=== PATIENT | male | born 1935 | race Caucasian/White ===

== ENCOUNTER 2016-10-06 12:45 | Emergency (ER) | payer MEDICARE, OTHER ==
[~2016-10-06] VITALS: Ht 177.8 cm; Wt 79.4 kg
[~2016-10-06 12:45] MED LIST: CIPRO500 MG PO; FLAGYL500 MG PO; FOLIC ACID0.8 M1 PO; K-PHOS500 MG PO; LIPITOR20 MG PO; LIPITOR40 MG PO; LOW DOSE ASPIRI81 MG PO; NORCO 5-325 TA1 EACH PO; PHARMASSURE FO0.4 MG PO; SENNO8.6 MG PO; SYNTHROID0.137 MG PO; VITAMIN D400 I1 PO
[2016-10-06 12:59] LABS: BASO % 0.2 % (0.0-1.0); EOS # 0.1 10*3/uL (0.0-0.4); EOS % 0.9 % (1.0-4.0); HEMATOCRIT 39.4 % (42.0-52.0); HEMOGLOBIN 13.2 g/dl (14.0-18.0); LYMPH # 1.7 10*3/uL (1.3-4.4); LYMPH % 20.2 % (27.0-41.0); MEAN CELL VOLUME 94.9 fl (80.0-94.0); MEAN CORPUSCULAR HGB 31.8 pg (27.0-31.0); MEAN CORPUSCULAR HGB CONC 33.5 g/dl (33.0-37.0); MEAN PLATELET VOLUME 11.5 fl (9.6-12.3); MONO # 0.8 10*3/uL (0.1-1.0); MONO % 9.8 % (3.0-9.0); NEUT # 5.6 10*3/uL (2.3-7.9); NEUT % 68.4 % (47.0-73.0); PLATELET COUNT AUTOMATED 250 10*3/uL (130-400); RED BLOOD COUNT 4.15 10*6/uL (4.50-5.90); RED CELL DISTRI WIDTH 13.1 % (0-14.5); WHITE BLOOD COUNT 8.2 10*3/uL (4.8-10.8)
[2016-10-06 13:06] VITALS: BP 101/57
[2016-10-06 13:15] LABS: ALBUMIN 4.1 gm/dl (3.1-4.5); ALKALINE PHOSPHATASE 82 U/L (45-117); BILIRUBIN, TOTAL 0.6 mg/dl (0.2-1.0); BUN 16 mg/dl (7-24); CARBON DIOXIDE 21 mmol/L (21-32); CHLORIDE 107 mmol/L (98-107); CKMB 2.4 ng/ml (0.5-3.6); CPK 137 U/L (39-308); EST GLOM FILT AFRICAN AMERICAN 58 ml/min; GLUCOSE 142 mg/dL (65-99); MAGNESIUM 1.9 mg/dL (1.5-2.1); POTASSIUM 4.1 mmol/L (3.5-5.1); SGOT/AST 31 IU/L (3-35); SGPT/ALT 27 U/L (12-78); SODIUM 140 mmol/L (136-145); TOTAL PROTEIN 7.5 gm/dL (6.4-8.2); TROPONIN I 0.023 ng/ml (<0.045)
[2016-10-06 13:29] LABS: C-REACTIVE PROTEIN < 0.29 MG/DL (0-0.3)
[2016-10-06 14:57] LABS: LA>2 REFLEX 2 HR DRAW NOW
== END 2016-10-06 14:26 | disposition short-term general hospital (02) ==
LOC: ED 12:45
PROVIDERS: Emergency Medicine
DX: I21.3 ST elevation (STEMI) myocardial infarction of unspecified site (principal); I25.10 Atherosclerotic heart disease of native coronary artery without angina pectoris; E78.00 Pure hypercholesterolemia, unspecified; E03.9 Hypothyroidism, unspecified; D53.9 Nutritional anemia, unspecified; Z87.891 Personal history of nicotine dependence; Z96.643 Presence of artificial hip joint, bilateral; Z90.49 Acquired absence of other specified parts of digestive tract; Z98.890 Other specified postprocedural states; Z79.899 Other long term (current) drug therapy; Z88.1 Allergy status to other antibiotic agents; Z79.82 Long term (current) use of aspirin; Z95.2 Presence of prosthetic heart valve

== ENCOUNTER 2016-12-20 13:51 | Inpatient (IN) | payer MEDICARE, OTHER ==
[~2016-12-20] VITALS: Ht 172.7 cm; Wt 73.9 kg
[2016-12-20 13:58] VITALS: BP 141/60
[2016-12-20] MEDS ORDERED: LISINOPRIL2.5 MG PO (14:06)
[2016-12-20] MEDS ORDERED: NITROGLYCERIN0.4 MG SL (14:06)
[2016-12-20] MEDS ORDERED: EFFIENT10 M1 PO (14:06)
[2016-12-20] MEDS ORDERED: LEVOXYL0.137 MG PO (14:06)
[2016-12-20] MEDS ORDERED: ATORVASTATIN CA40 M1 PO (14:07)
[2016-12-20] MEDS ORDERED: NATURE'S BLEND F1 MG PO (14:07)
[2016-12-20] MEDS ORDERED: VITAMIN D1000 IU PO (14:07)
[2016-12-20 14:50] LABS: BASO % 0.4 % (0.0-1.0); EOS # 0.1 10*3/uL (0.0-0.4); EOS % 1.6 % (1.0-4.0); HEMATOCRIT 35.5 % (42.0-52.0); HEMOGLOBIN 11.8 g/dl (14.0-18.0); LYMPH # 1.2 10*3/uL (1.3-4.4); LYMPH % 21.4 % (27.0-41.0); MEAN CELL VOLUME 97.5 fl (80.0-94.0); MEAN CORPUSCULAR HGB 32.4 pg (27.0-31.0); MEAN CORPUSCULAR HGB CONC 33.2 g/dl (33.0-37.0); MEAN PLATELET VOLUME 10.9 fl (9.6-12.3); MONO # 0.6 10*3/uL (0.1-1.0); MONO % 10.3 % (3.0-9.0); NEUT # 3.7 10*3/uL (2.3-7.9); NEUT % 65.9 % (47.0-73.0); PLATELET COUNT AUTOMATED 243 10*3/uL (130-400); RED BLOOD COUNT 3.64 10*6/uL (4.50-5.90); RED CELL DISTRI WIDTH 13.3 % (0-14.5); WHITE BLOOD COUNT 5.6 10*3/uL (4.8-10.8)
[2016-12-20 15:00] LABS: INTERNATIONAL NORM RATIO 1.1 (2.0-3.5); PROTHROMBIN TIME 11.2 SECONDS (9.0-12.4)
[2016-12-20 15:06] LABS: ALBUMIN 3.5 gm/dl (3.1-4.5); ALKALINE PHOSPHATASE 67 U/L (45-117); BILIRUBIN, TOTAL 0.4 mg/dl (0.2-1.0); BUN 14 mg/dl (7-24); CARBON DIOXIDE 25 mmol/L (21-32); CHLORIDE 109 mmol/L (98-107); EST GLOM FILT AFRICAN AMERICAN > 60 ml/min; GLUCOSE 103 mg/dL (65-99); MAGNESIUM 1.8 mg/dL (1.5-2.1); SGOT/AST 30 IU/L (3-35); SGPT/ALT 30 U/L (12-78); SODIUM 142 mmol/L (136-145); TOTAL PROTEIN 6.7 gm/dL (6.4-8.2); TROPONIN I 0.024 ng/ml (<0.045)
[2016-12-20 15:59] VITALS: BP 121/74
[2016-12-20 16:10] VITALS: BP 129/66
[2016-12-20 17:55] LABS: CKMB 2.8 ng/ml (0.5-3.6)
[2016-12-20 20:00] VITALS: BP 123/62
[2016-12-21] VITALS: BP 106/49
[2016-12-21 00:48] LABS: CKMB 2.2 ng/ml (0.5-3.6)
[2016-12-21 06:24] LABS: BASO % 0.3 % (0.0-1.0); EOS # 0.3 10*3/uL (0.0-0.4); EOS % 5.5 % (1.0-4.0); HEMOGLOBIN 11.5 g/dl (14.0-18.0); LYMPH # 1.7 10*3/uL (1.3-4.4); LYMPH % 29.3 % (27.0-41.0); MEAN CELL VOLUME 97.2 fl (80.0-94.0); MEAN CORPUSCULAR HGB 31.9 pg (27.0-31.0); MEAN CORPUSCULAR HGB CONC 32.9 g/dl (33.0-37.0); MEAN PLATELET VOLUME 11.3 fl (9.6-12.3); MONO # 0.7 10*3/uL (0.1-1.0); MONO % 11.4 % (3.0-9.0); NEUT # 3.1 10*3/uL (2.3-7.9); NEUT % 53.3 % (47.0-73.0); PLATELET COUNT AUTOMATED 220 10*3/uL (130-400); RED CELL DISTRI WIDTH 13.2 % (0-14.5); WHITE BLOOD COUNT 5.8 10*3/uL (4.8-10.8)
[2016-12-21 06:38] LABS: CKMB 1.9 ng/ml (0.5-3.6)
[2016-12-21 06:55] LABS: HEMOGLOBIN A1c 5.8 % (4.8-5.6)
[2016-12-21 06:57] LABS: ALBUMIN 3.2 gm/dl (3.1-4.5); ALKALINE PHOSPHATASE 61 U/L (45-117); BILIRUBIN, TOTAL 0.3 mg/dl (0.2-1.0); BUN 15 mg/dl (7-24); CARBON DIOXIDE 25 mmol/L (21-32); CHLORIDE 111 mmol/L (98-107); CHOLESTEROL 125 mg/dL (<200); EST GLOM FILT AFRICAN AMERICAN > 60 ml/min; FREE T4 1.15 ng/dl (0.76-1.46); GLUCOSE 90 mg/dL (65-99); HDL CHOLESTEROL 61 mg/dl (40-60); LDL CHOLESTEROL 54 mg/dL (9-159); MAGNESIUM 1.9 mg/dL (1.5-2.1); PHOSPHOROUS 3.5 mg/dL (2.5-4.9); POTASSIUM 4.3 mmol/L (3.5-5.1); SGOT/AST 26 IU/L (3-35); SGPT/ALT 30 U/L (12-78); SODIUM 143 mmol/L (136-145); TOTAL PROTEIN 6.2 gm/dL (6.4-8.2); TRIGLYCERIDES 52 mg/dl (<150); VLDL CHOLESTEROL 10 mg/dL (6-40)
[2016-12-21 07:01] LABS: THYROID STIM HORMONE (HS) 0.309 uIU/ml (0.358-4.75)
[2016-12-21 07:08] LABS: PROTHROMBIN TIME 11.1 SECONDS (9.0-12.4)
[2016-12-21 07:50] LABS: FOLIC ACID > 24.00 ng/mL (>5.38)
[2016-12-21 08:00] VITALS: BP 93/72
== END 2016-12-21 11:24 | disposition home or self-care (01) | DRG 149 ==
LOC: ED 13:51 → EDHOLD 15:46 → 5E 15:56
PROVIDERS: Internal Medicine; Physician Assistant
DX: R42 Dizziness and giddiness (principal); E87.8 Other disorders of electrolyte and fluid balance, not elsewhere classified; D64.9 Anemia, unspecified; Z88.1 Allergy status to other antibiotic agents; Z96.643 Presence of artificial hip joint, bilateral; I25.10 Atherosclerotic heart disease of native coronary artery without angina pectoris; Z95.5 Presence of coronary angioplasty implant and graft; Z87.891 Personal history of nicotine dependence; Z82.49 Family history of ischemic heart disease and other diseases of the circulatory system; K57.30 Diverticulosis of large intestine without perforation or abscess without bleeding; E03.9 Hypothyroidism, unspecified; H53.8 Other visual disturbances; I25.2 Old myocardial infarction

== ENCOUNTER 2016-12-29 11:27 | Emergency (ER) | payer MEDICARE, OTHER ==
[~2016-12-29] VITALS: Wt 71.7 kg
[~2016-12-29 11:27] MED LIST changes: +ATORVASTATIN CA40 M1 PO; +EFFIENT10 M1 PO; +LEVOXYL0.137 MG PO; +LISINOPRIL2.5 MG PO; +NATURE'S BLEND F1 MG PO; +NITROGLYCERIN0.4 MG SL; +VITAMIN D1000 IU PO
[2016-12-29 11:45] VITALS: BP 143/65
== END 2016-12-29 15:40 | disposition home or self-care (01) ==
LOC: ED 11:27
DX: S60.222A Contusion of left hand, initial encounter (principal); L25.9 Unspecified contact dermatitis, unspecified cause; Z88.1 Allergy status to other antibiotic agents; Z79.899 Other long term (current) drug therapy; Z79.82 Long term (current) use of aspirin; Z87.891 Personal history of nicotine dependence; X58.XXXA Exposure to other specified factors, initial encounter; Y93.9 Activity, unspecified; Y92.9 Unspecified place or not applicable; Y99.9 Unspecified external cause status

== ENCOUNTER → 2019-11-08 | Outpatient (CLI) | payer MEDICARE, OTHER | END | disposition home or self-care (01) | LOC: CARD 12:21 | DX: I25.10 Atherosclerotic heart disease of native coronary artery without angina pectoris (principal) ==